=== PATIENT | female | born 1955 ===

== ENCOUNTER 2019-01-31 19:23 | Emergency (ER) | payer OTHER ==
[~2019-01-31] VITALS: Ht 160 cm; Wt 72.6 kg
[~2019-01-31 19:23] MED LIST: ARIMIDEX PO; ENALAPRIL MALEAT5 MG PO; FENOFIBRATE145 MG PO; GLIPIZIDE2.5 MG/BO1 PO; METFORMIN HCL1000 M1 PO; NABUMETONE500 MG PO; ONGLYZA5 MG PO; PERCOCET 5/3251 TAB PO; SYNTHROID88 MCG PO
[2019-01-31] MEDS ORDERED: ASPIR 8181 MG PO (19:41)
[2019-01-31] MEDS ORDERED: CRESTOR20 MG PO (19:41)
[2019-01-31] MEDS ORDERED: TOPROL XL25 MG PO (19:41)
[2019-01-31] MEDS ORDERED: SYNTHROID112 MCG PO (19:41)
[2019-01-31] MEDS ORDERED: CITALOPRAM HBR10 MG PO (19:41)
[2019-01-31] MEDS ORDERED: NOVOLIN R100 UNIT/1 IM (19:42)
== END 2019-01-31 22:44 | disposition home or self-care (01) ==
LOC: ER 19:23
DX: J45.998 Other asthma (principal)

== ENCOUNTER 2022-12-20 17:57 | Emergency (ER) | payer OTHER ==
[~2022-12-20] VITALS: Ht 160 cm; Wt 77.1 kg
[~2022-12-20 17:57] MED LIST changes: +ASPIR 8181 MG PO; +CITALOPRAM HBR10 MG PO; +CRESTOR20 MG PO; +NOVOLIN R100 UNIT/1 IM; +SYNTHROID112 MCG PO; +TOPROL XL25 MG PO
== END 2022-12-20 21:36 | disposition home or self-care (01) ==
LOC: ER 17:57
DX: T78.49XA Other allergy, initial encounter (principal); E11.9 Type 2 diabetes mellitus without complications; Z79.4 Long term (current) use of insulin; I10 Essential (primary) hypertension; H57.9 Unspecified disorder of eye and adnexa

== ENCOUNTER 2023-05-25 16:50 | Emergency (ER) | payer OTHER ==
[~2023-05-25] VITALS: Ht 160 cm; Wt 74.4 kg
== END 2023-05-26 00:50 | disposition left against medical advice (07) ==
LOC: ER 16:50
PROVIDERS: General Practice
DX: R31.9 Hematuria, unspecified (principal); E11.9 Type 2 diabetes mellitus without complications; I10 Essential (primary) hypertension; Z79.4 Long term (current) use of insulin